=== PATIENT | female | born 1965 | race Caucasian/White ===

== ENCOUNTER 2024-04-24 20:04 | Inpatient (IN) | payer OTHER ==
[~2024-04-24] VITALS: Ht 170.2 cm; Wt 100.7 kg
[~2024-04-24 20:04] MED LIST: ANTI-GAS 8080 MG PO; ASPIRIN; BENADRYL25 MG PO; DOXYCYCLINE100 M2 PO; FERROUS SULFAT325 MG PO; K-DUR20 MEQ PO; KEFLEX500 MG PO; LASIX20 MG PO; LYRICA100 MG PO; MOTRIN800 MG; MOTRIN800 MG PO; NORCO PO; PERCOCET 325 MG1 TA2 PO; PERCOCET 325 MG1 TA5; PERCOCET 325 MG1 TA8 PO; PHENERGAN25 M1 PO; POTASSIUM20 MEQ PO; PRILOSEC40 MG PO; REGLAN PO; ROBITUSSIN AC 10 MG/ PO; VICODIN 5/500 505 MG; VITAMIN D1000 IU PO; VITAMIN D31000 IU PO; ZOFRAN ODT4 MG PO; ZOLOFT100 MG PO
[2024-04-24 20:16] VITALS: BP 115/55
[2024-04-24] MEDS ORDERED: GRALISE300 M1 PO (20:17)
[2024-04-24] MEDS ORDERED: CELEBREX50 MG PO (20:18)
[2024-04-24] MEDS ORDERED: HEARTBURN RELIE20 MG PO (20:18)
[2024-04-24] MEDS ORDERED: VENLAFAXINE37.5 M1 PO (20:18)
[2024-04-24] MEDS ORDERED: CLARITIN10 M1 PO (20:19)
[2024-04-24] MEDS ORDERED: Ondansetron Hydrochloride 4 MG/2 ML VIAL IV ONE (20:30)
[2024-04-24] MEDS ORDERED: SODIUM CHLORIDE 0.9% 1,000 ML IV ONE (20:30)
[2024-04-24] MEDS ORDERED: ACETAMINOPHEN 325 MG TAB PO ONE (20:30)
[2024-04-24 21:02] LABS: BILIRUBIN 1+ (Negative); BLOOD 2+ (Negative); CLARITY Cloudy (Clear); COLOR Dark Yellow (Yellow); GLUCOSE Negative (Negative); KETONE 2+ (Negative); LEUKO ESTERASE 2+ (Negative); NITRITE Negative (Negative); PH 6.5 (4.5-8.0)
[2024-04-24 21:02] LABS: HEMATOCRIT 37.8 % (37.0-47.0); MEAN CELL VOLUME 83.1 fl (81.0-99.0); MEAN CORPUSCULAR HGB 27.5 pg (27.0-31.0); MEAN CORPUSCULAR HGB CONC 33.1 g/dl (33.0-37.0); MEAN PLATELET VOLUME 9.7 fl (9.6-12.3); PLATELET COUNT AUTOMATED 341 10*3/uL (130-400); RED BLOOD COUNT 4.55 10*6/uL (4.10-5.10); RED CELL DISTRI WIDTH 13.5 % (0-14.5); WHITE BLOOD COUNT 13.7 10*3/uL (4.8-10.8)
[2024-04-24 21:04] LABS: MANUAL DIFF REFLEX YES
[2024-04-24 21:13] LABS: BACTERIA 3+; MUCOUS 1+; WBC 41-50 wbc/hpf (0-5)
[2024-04-24 21:23] LABS: POTASSIUM 3.3 mmol/L (3.4-5.1); TOTAL PROTEIN 7.5 gm/dL (6.0-8.0)
[2024-04-24 21:26] LABS: BASOPHILS 1 % (0-1); PLATELET SUFFICIENCY NORMAL (NORMAL); TOTAL CELLS COUNTED 100 #CELLS
[2024-04-24 21:27] LABS: OVALOCYTES FEW
[2024-04-24] MEDS ORDERED: Ceftriaxone Sodium 1 GM/10 ML SYR IV ONE (21:35)
[2024-04-24] MEDS ORDERED: TEMAZEPAM 15 MG CAP PO PRN (22:15)
[2024-04-24] MEDS ORDERED: ACETAMINOPHEN 650 MG SUPP R PRN (22:15)
[2024-04-24] MEDS ORDERED: Ondansetron Hydrochloride 4 MG/2 ML VIAL IV PRN (22:15)
[2024-04-24] MEDS ORDERED: BISACODYL 5 MG TAB PO PRN (22:15)
[2024-04-24] MEDS ORDERED: Acetaminophen/Hydrocodone 5 MG/325 MG TABLET PO PRN (22:15)
[2024-04-24] MEDS ORDERED: ACETAMINOPHEN 325 MG TAB PO PRN (22:15)
[2024-04-24] MEDS ORDERED: BISACODYL 10 MG SUPP R PRN (22:15)
[2024-04-24] MEDS ORDERED: diphenhydrAMINE hydrochloride 50 MG/ML VIAL IV ONE (22:35)
[2024-04-24] MEDS ORDERED: Metoclopramide Hydrochloride 10 MG/2 ML VIAL IV ONE (22:35)
[2024-04-24] MEDS ORDERED: MAGNESIUM SULFATE 50 ML IV ONE (22:35)
[2024-04-24] MEDS ORDERED: SODIUM CHLORIDE 0.9% 1,000 ML IV SCH (22:45)
[2024-04-24] MEDS ORDERED: POTASSIUM CHLORIDE 20 MEQ TAB PO ONE (23:00)
[2024-04-24 23:40] VITALS: BP 96/57
[2024-04-25 04:42] VITALS: BP 112/40
[2024-04-25 05:44] LABS: ALKALINE PHOSPHATASE 122 U/L (46-116); BUN 16 mg/dl (9-23); CHLORIDE 105 mmol/L (98-107); CHOLESTEROL 165 mg/dL (<200); FREE T4 1.14 ng/dl (0.89-1.76); LDL CHOLESTEROL 100 mg/dL (9-159); POTASSIUM 3.5 mmol/L (3.4-5.1); SGPT/ALT 26 U/L (5-49); TRIGLYCERIDES 92 mg/dl (<150)
[2024-04-25 05:59] LABS: BASO % 0.2 % (0.0-1.0); EOS % 0.2 % (1.0-4.0); HEMATOCRIT 36.8 % (37.0-47.0); MEAN CELL VOLUME 85.6 fl (81.0-99.0); MEAN CORPUSCULAR HGB 27.4 pg (27.0-31.0); MEAN CORPUSCULAR HGB CONC 32.1 g/dl (33.0-37.0); MEAN PLATELET VOLUME 10.3 fl (9.6-12.3); MONO # 1.4 10*3/uL (0.1-1.0); MONO % 10.5 % (3.0-9.0); NEUT # 9.9 10*3/uL (2.3-7.9); NEUT % 76.8 % (47.0-73.0); PLATELET COUNT AUTOMATED 286 10*3/uL (130-400); RED CELL DISTRI WIDTH 13.9 % (0-14.5); WHITE BLOOD COUNT 12.9 10*3/uL (4.8-10.8)
[2024-04-25] MEDS ORDERED: GABAPENTIN 300 MG CAP PO SCH (06:00)
[2024-04-25 07:06] LABS: VITAMIN D, 25-HYDROXY 31.6 ng/mL (30-100)
[2024-04-25 07:20] LABS: ACT PARTIAL THROMBO TIME 30.5 SECONDS (20.0-32.1)
[2024-04-25] MEDS ORDERED: FAMOTIDINE 20 MG TAB PO SCH (10:00)
[2024-04-25] MEDS ORDERED: LORATADINE 10 MG TAB PO SCH (10:00)
[2024-04-25] MEDS ORDERED: Vitamin D 400 IU TAB (10 MCG) PO SCH (10:00)
[2024-04-25] MEDS ORDERED: Enoxaparin Sodium 40 MG/0.4 ML SYR SC SCH (10:00)
[2024-04-25] MEDS ORDERED: Venlafaxine Hydrochloride 37.5 MG CAP PO SCH (10:00)
[2024-04-25] MEDS ORDERED: OMEPRAZOLE 20 MG CAP PO SCH (10:00)
[2024-04-25 10:54] VITALS: BP 117/96
[2024-04-25 16:09] VITALS: BP 121/53
[2024-04-25 17:00] VITALS: BP 114/49
[2024-04-25 20:00] VITALS: BP 120/64
[2024-04-25] MEDS ORDERED: Ceftriaxone Sodium 1 GM,IV 1 EA in SYRINGE INFUSION 10 ML IV SCH (22:00)
[2024-04-26] VITALS: BP 131/56
[2024-04-26 05:39] LABS: BUN 12 mg/dl (9-23); CHLORIDE 104 mmol/L (98-107); POTASSIUM 3.5 mmol/L (3.4-5.1)
[2024-04-26 06:09] LABS: BASO % 0.4 % (0.0-1.0); EOS # 0.1 10*3/uL (0.0-0.4); EOS % 0.8 % (1.0-4.0); HEMATOCRIT 32.8 % (37.0-47.0); MEAN CELL VOLUME 84.5 fl (81.0-99.0); MEAN CORPUSCULAR HGB 27.1 pg (27.0-31.0); MEAN PLATELET VOLUME 10.6 fl (9.6-12.3); MONO # 1.1 10*3/uL (0.1-1.0); MONO % 12.4 % (3.0-9.0); NEUT # 5.8 10*3/uL (2.3-7.9); NEUT % 67.9 % (47.0-73.0); PLATELET COUNT AUTOMATED 245 10*3/uL (130-400); RED BLOOD COUNT 3.88 10*6/uL (4.10-5.10); RED CELL DISTRI WIDTH 13.7 % (0-14.5); WHITE BLOOD COUNT 8.5 10*3/uL (4.8-10.8)
[2024-04-26 08:00] VITALS: BP 107/52
[2024-04-26 12:00] VITALS: BP 102/48
[2024-04-26 16:00] VITALS: BP 114/63
[2024-04-26 20:00] VITALS: BP 133/66
[2024-04-27] VITALS: BP 128/64
[2024-04-27 06:29] LABS: BASO % 0.5 % (0.0-1.0); EOS # 0.2 10*3/uL (0.0-0.4); EOS % 3.9 % (1.0-4.0); HEMATOCRIT 32.5 % (37.0-47.0); MEAN CELL VOLUME 84.6 fl (81.0-99.0); MEAN CORPUSCULAR HGB 27.6 pg (27.0-31.0); MEAN CORPUSCULAR HGB CONC 32.6 g/dl (33.0-37.0); MEAN PLATELET VOLUME 10.4 fl (9.6-12.3); MONO # 0.5 10*3/uL (0.1-1.0); MONO % 9.7 % (3.0-9.0); NEUT # 2.9 10*3/uL (2.3-7.9); NEUT % 52.6 % (47.0-73.0); PLATELET COUNT AUTOMATED 291 10*3/uL (130-400); RED BLOOD COUNT 3.84 10*6/uL (4.10-5.10); RED CELL DISTRI WIDTH 13.7 % (0-14.5); WHITE BLOOD COUNT 5.6 10*3/uL (4.8-10.8)
[2024-04-27 06:50] LABS: BUN 11 mg/dl (9-23); CHLORIDE 104 mmol/L (98-107); POTASSIUM 3.4 mmol/L (3.4-5.1)
[2024-04-27 08:00] VITALS: BP 114/65
[2024-04-27] MEDS ORDERED: Meropenem 50 ML IV SCH (10:00)
[2024-04-27 12:00] VITALS: BP 128/56
[2024-04-27 16:00] VITALS: BP 109/48
[2024-04-27 20:00] VITALS: BP 120/61
[2024-04-27] MEDS ORDERED: LEVOFLOXACIN750 M2 PO (22:24)
[2024-04-28] VITALS: BP 136/74
[2024-04-28 04:45] LABS: BUN 10 mg/dl (9-23); CHLORIDE 102 mmol/L (98-107); POTASSIUM 3.6 mmol/L (3.4-5.1)
[2024-04-28 06:13] LABS: BASO % 0.5 % (0.0-1.0); EOS # 0.3 10*3/uL (0.0-0.4); EOS % 4.7 % (1.0-4.0); HEMATOCRIT 32.8 % (37.0-47.0); MEAN CELL VOLUME 84.8 fl (81.0-99.0); MEAN CORPUSCULAR HGB 27.4 pg (27.0-31.0); MEAN CORPUSCULAR HGB CONC 32.3 g/dl (33.0-37.0); MEAN PLATELET VOLUME 10.4 fl (9.6-12.3); MONO # 0.6 10*3/uL (0.1-1.0); MONO % 9.5 % (3.0-9.0); NEUT # 2.9 10*3/uL (2.3-7.9); NEUT % 47.6 % (47.0-73.0); PLATELET COUNT AUTOMATED 310 10*3/uL (130-400); RED BLOOD COUNT 3.87 10*6/uL (4.10-5.10); RED CELL DISTRI WIDTH 13.5 % (0-14.5); WHITE BLOOD COUNT 6.1 10*3/uL (4.8-10.8)
[2024-04-28 08:00] VITALS: BP 122/93
== END 2024-04-28 14:05 | disposition home or self-care (01) | DRG 871 ==
LOC: ED 20:04 → EDHOLD 22:01 → 4E 04-25 14:50
PROVIDERS: Physician Assistant Medical; ADMIT Internal Medicine; ATTEND Internal Medicine
DX: A41.9 Sepsis, unspecified organism (principal); N17.0 Acute kidney failure with tubular necrosis; E87.1 Hypo-osmolality and hyponatremia; Z16.12 Extended spectrum beta lactamase (ESBL) resistance; N30.01 Acute cystitis with hematuria; E87.6 Hypokalemia; F41.9 Anxiety disorder, unspecified; F32.A Depression, unspecified; K21.9 Gastro-esophageal reflux disease without esophagitis; M06.9 Rheumatoid arthritis, unspecified; G43.911 Migraine, unspecified, intractable, with status migrainosus; R73.9 Hyperglycemia, unspecified; G35 Multiple sclerosis; M79.7 Fibromyalgia; D64.9 Anemia, unspecified; B96.20 Unspecified Escherichia coli [E. coli] as the cause of diseases classified elsewhere; Z83.3 Family history of diabetes mellitus; Z82.49 Family history of ischemic heart disease and other diseases of the circulatory system; Z90.710 Acquired absence of both cervix and uterus; Z90.49 Acquired absence of other specified parts of digestive tract

== ENCOUNTER → 2025-02-17 | Outpatient (CLI) | payer OTHER ==
[~2025-02-17] MED LIST changes: +CELEBREX50 MG PO; +CLARITIN10 M1 PO; +GRALISE300 M1 PO; +HEARTBURN RELIE20 MG PO; +LEVOFLOXACIN750 M2 PO; +VENLAFAXINE37.5 M1 PO
[2025-02-17 09:27] LABS: BASO # 0.1 10*3/uL (0.0-0.1); BASO % 0.9 % (0.0-1.0); EOS # 0.2 10*3/uL (0.0-0.4); EOS % 2.8 % (1.0-4.0); MEAN CELL VOLUME 82.2 fl (81.0-99.0); MEAN CORPUSCULAR HGB 27.4 pg (27.0-31.0); MEAN PLATELET VOLUME 9.4 fl (9.6-12.3); MONO # 0.5 10*3/uL (0.1-1.0); MONO % 8.4 % (3.0-9.0); NEUT # 2.6 10*3/uL (2.3-7.9); NEUT % 46.3 % (47.0-73.0); NUCLEATED RED BLOOD CELL 0.0 % (0.0-0.0); NUCLEATED RED BLOOD CELL 0.0 10*3/uL (0.0-0.0); PLATELET COUNT AUTOMATED 304 10*3/uL (130-400); RED CELL DISTRI WIDTH 12.2 % (0-14.5)
[2025-02-17 09:29] LABS: BILIRUBIN Negative (Negative); BLOOD Negative (Negative); CLARITY Clear (Clear); COLOR Yellow (Yellow); KETONE Negative (Negative); LEUKO ESTERASE Trace (Negative); NITRITE Negative (Negative); PH 6.0 (4.5-8.0); SPECIFIC GRAVITY 1.015 (1.001-1.030); UROBILINOGEN 0.2 E.U./dl (0.0-1.0)
[2025-02-17 09:37] LABS: ACT PARTIAL THROMBO TIME 23.0 SECONDS (20.0-32.1)
[2025-02-17 09:46] LABS: BUN 16 mg/dl (9-23); SGPT/ALT 26 U/L (5-49)
[2025-02-17 11:40] LABS: BACTERIA 2+; EPITHELIAL CELLS 21-30; MUCOUS 1+; RBC 0-2 rbc/hpf (0-2)
== END | disposition home or self-care (01) ==
LOC: LAB 08:26
PROVIDERS: ATTEND Orthopaedic Surgery
DX: Z01.818 Encounter for other preprocedural examination (principal)